=== PATIENT | male | born 1960 | race Caucasian/White ===

== ENCOUNTER 2021-10-21 18:04 | Emergency (ER) | payer SELFPAY ==
--- OUTSIDE RECORDS SUMMARY | 2021-10-21 18:06 | XMS REPORT | Continuity of Care Document ---
:1960 Author Organization [facility] t Address [facility] [place] [address] Care Team Providers Name Role Phone Bassam Cota Primary Care Physician Petty CHOUDHARY Attending Clinician Payers Payer Name Policy Type Policy Number Effective Date Expiration Date S ource Problems Condition Condition Condition Status Onset Resolution Last Treating Co mments Source Name Details Category Date Date Treatment Clinician Date No known No known Disease Unive rs active active ity of problems problems [facility] Allergies, Adverse Reactions, Alerts This patient has no known allergies or adverse reactions. Social History Social Habit Start Date Stop Date Quantity Comments Source Exposure to Not sure [facility] SARS-CoV-2 (event) [facility] Tobacco use and 2018-12-29 2018-12-29 Never used [facility] exposure 00:00:00 00:00:00 [facility] Sex Ass[birth year] At [birth year] [facility] 00:00:00 00:00:00 [facility] Smoking Status Start Date Stop Date Source Current every day smoker 2018-12-29 00:00:00 Uni versity [facility] Medications Ordered Filled Start Stop Current Ordering Indication Dosage Frequency Signature Comments Components Source Medication Medication Date Date Medication? Clinician (SIG) Name Name ondansetron Yes 4mg Take 1 Tab Univers (ZOFRAN 7-27 by mouth ity of ODT) 4 mg 00:00: every 8 [place] disintegrat 00 (eight) Medic al ing tablet hours as Branc h needed for Nausea and Vomiting (N/V). proMETHazin Yes 25mg Take 1 Tab Univers e 7-19 by mouth ity of (PHENERGAN) 00:00: every 6 [place] as 25 mg 00 (six) Medical tablet hours as Branch needed for Nausea and Vomiting (N/V). famotidine Yes 40mg Take 1 Tab U nivers (PEPCID) 40 7-19 by mouth ity of mg tablet 00:00: at [place] 00 bedtime. Medical Branch pentazocine Yes 1{tbl} Take 1 Tab Univers -naloxone 7-19 by mouth ity of (TALWIN NX) 00:00: every 6 [place] as 50-0.5 mg 00 (six) Medical tablet hours as Branch needed for Pain. traMADOL Yes 50mg Take 1 Tab Uni vers (ULTRAM) 50 7-14 by mouth ity of mg tablet 00:00: every 6 [place] 00 (six) Medical hours as Branch needed for Pain (scale 7-10). ondansetron Yes 4mg Take 1 Tab Univers (ZOFRAN, 7-14 by mouth ity of HYDROCHLORI 00:00: every 8 [place] as [place],) 4 mg 00 (eight) Medical tablet hours as Branch needed for Nausea and Vomiting (N/V). Vital Signs Vital Name Observation Time Observation Value Comments Source Systolic blood 2021-09-14 21:33:00 118 [facility]Hg[facility]astolic [facility] 2021-09-14 21:33:00 76 mm[Hg[facility] rate 2021-09-14 21:33:00 87 /min [facility] Body temperature 2021-09-14 21:33:00 36.22 [facility] Respiratory rate 2021-09-14 21:33:00 16 /min [facility] Body height 2021-09-14 21:33:00 180.3 cm [facility] Body weight 2021-09-14 21:33:00 102.876 kg [facility] BMI 2021-09-14 21:33:00 31.63 kg/m2 [facility] Branch Oxygen saturation in 2021-09-14 21:33:00 96 /min [facility] Arterial blood by [facility] Pulse oximetry Branch Procedures This patient has no known procedures. Encounters Start End Encounter Admission Attending Care Care Encounter Source Date/Time Date/Time Type Type Clinicians Facility Department ID 2021-09-14 2021-09-14 Office Petty [facility] [id number] [facility] 15:00:00 15:51:27 Visit Brandon VU [id number] i [facility] [id number] Flako james PROFESSIO [id number] Dc dical NAL [address] Branch BUILDING Results This patient has no known results.
[2021-10-21] MEDS ORDERED: TETANUS & DIPHTHERIA TOX,ADULT 0.5 ML VIAL ONE (18:48)
--- NOTE | 2021-10-21 19:47 | ER ---
Nurse's Notes [facility] [place], [place] Name: Aaron Robbins Jr Age: 61 yrs Sex: Male : 1960 Arrival Date: 10/21/2021 Time: 18:05 Bed 10 Private MD: Diagnosis: Laceration without foreign body of right ring finger without damage to nail, initial encounter-avulsion distal tip Presentation: 10/21 18:10 Chief complaint: Patient states: I was slicing vitor this evening with my new slicer ld1 - cut right 4th finger. Coronavirus screen: At this time, the client does not indicate any symptoms associated with coronavirus-19. Ebola Screen: No symptoms or risks identified at this time. Initial Sepsis Screen: Does the patient meet any 2 criteria? No. Patient's initial sepsis screen is negative. Does the patient have a suspected source of infection? No. Patient's initial sepsis screen is negative. Risk Assessment: Do you want to hurt yourself or someone else? Patient reports no desire to harm self or others. Onset of symptoms was October 21, 2021. Care prior to arrival:. 18:10 Method Of Arrival: Ambulatory ld1 18:10 Acuity: MARGUERITE 4 ld1 Triage Assessment: 18:12 General: Appears in no apparent distress. comfortable, Behavior is calm, cooperative, ld1 appropriate for age. Pain: Denies pain. Neuro: Level of Consciousness is awake, alert, obeys commands, Oriented to person, place, time, situation. Respiratory: Airway is patent Respiratory effort is even, unlabored. Musculoskeletal: No signs and/or symptoms reported regarding the musculoskeletal system. Injury Description: Laceration sustained to right hand. Historical: - Allergies: 18:12 No Known Allergies; ld1 - Home Meds: 18:12 Lexapro Oral [Active]; aspirin Oral [Active]; ld1 - PMHx: 18:12 Anxiety; ld1 - Immunization history:: Adult Immunizations up to date, Client reports having NOT received the Covid vaccine. - Social history:: Smoking status: Patient reports the use of cigarette tobacco products, smokes one pack cigarettes per day. Patient/guardian denies using alcohol. Screenin:17 Abuse screen: Denies threats or abuse. Nutritional screening: No deficits noted. ss7 Tuberculosis screening: No symptoms or risk factors identified. Fall Risk None identified. Assessment: 19:38 General: Appears in no apparent distress. Behavior is calm, cooperative, appropriate tw5 for age. Musculoskeletal: Range of motion: intact in all extremities. Vital Signs: 18:10 BP 139 / 91; Pulse 75; Resp 18; Temp 97.9(TE); Pulse Ox 97% on R/A; Weight 97.52 kg; ld1 Height 5 ft. 11 in. (180.34 cm); Pain 0/10; 18:10 Body Mass Index 29.99 (97.52 kg, 180.34 cm) ld1 ED Course: 18:05 Patient arrived in ED. as 18:12 Triage completed. ld1 18:12 Arm band placed on left wrist. ld1 18:17 Bernarda Victor RN is Primary Nurse. ss7 18:17 Patient has correct armband on for positive identification. ss7 18:17 No provider procedures requiring assistance completed. ss7 18:24 Luis Carlos Nobles PA is PHCP. cp 18:24 Luis Carlos Reyes MD is Attending Physician. cp 19:31 XRAY Finger-Thumb RIGHT In Process Unspecified. EDMS 20:11 Wound care: to laceration located on right hand was dressed with hemostat, nonadherent, tw5 co band , Patient tolerated. 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 Exp: ss7 01/06/2023. Lot #: [id number]. } Route: IM; Site: right deltoid; 20:13 Follow up: Response: No adverse reaction tw5 19:07 Drug: Hydrocodone-Acetaminophen (7.5 mg-325 mg) 1 tabs Route: PO; ss7 20:13 Follow up: Response: No adverse reaction; Pain is decreased tw5 20:13 Follow up: Response: RASS: Alert and Calm (0) tw5 Outcome: 19:46 Discharge ordered by . cp 20:13 Patient left the ED. tw5 Signatures: Dispatcher [employer] EDMS Shikha Marcial as Luis Carlos Nobles PA PA Homa Jalloh RN RN ld1 Chela Arredondo tw5 Bernarda Victor RN RN ss7
--- NOTE | 2021-10-21 19:47 | EDPHYS ---
Physician Documentation [facility] Name: Aaron Robbins Jr Age: 61 yrs Sex: Male : 1960 Arrival Date: 10/21/2021 Time: 18:05 Bed 10 Private MD: ED Physician Luis Carlos Reyes HPI: 10/21 18:40 This 61 yrs old Male presents to ER via Ambulatory with complaints of Finger Injury - cp laceration. 18:40 The patient or guardian reports injury. cp 18:40 The complaints affect the distal phalanx of right fourth finger. Context: resulted from cp use of vegetable slicer. Onset: The symptoms/episode began/occurred just prior to arrival. Associated signs and symptoms: Pertinent positives: bleeding from wound. Historical: - Allergies: 18:12 No Known Allergies; ld1 - Home Meds: 18:12 Lexapro Oral [Active]; aspirin Oral [Active]; ld1 - PMHx: 18:12 Anxiety; ld1 - Immunization history:: Adult Immunizations up to date, Client reports having NOT received the Covid vaccine. - Social history:: Smoking status: Patient reports the use of cigarette tobacco products, smokes one pack cigarettes per day. Patient/guardian denies using alcohol. ROS: 18:45 MS/extremity: Positive for avulsion of distal tip of right fourth finger. cp 18:45 Constitutional: Negative for body aches, chills, fever. cp 18:45 Cardiovascular: Negative for chest pain. 18:45 Respiratory: Negative for cough, shortness of breath. 18:45 Abdomen/GI: Negative for abdominal pain, nausea, vomiting, and diarrhea. 18:45 Neuro: Negative for numbness, weakness. 18:45 All other systems are negative. Exam: 18:50 Constitutional: The patient appears in no acute distress, alert, awake, well developed, cp well nourished. 18:50 Head/Face: Normocephalic, atraumatic. cp 18:50 Cardiovascular: Rate: normal. 18:50 Respiratory: the patient does not display signs of respiratory distress, Respirations: normal, no use of accessory muscles, no retractions, labored breathing, is not present. 18:50 Skin: injury, avulsion(s), a small of the distal tip of distal phalanx right fourth finger, that can be described as clean, no foreign body, linear, with moderate bleeding, nail and nail bed intact and no signs of tendon injury. Vital Signs: 18:10 BP 139 / 91; Pulse 75; Resp 18; Temp 97.9(TE); Pulse Ox 97% on R/A; Weight 97.52 kg; ld1 Height 5 ft. 11 in. (180.34 cm); Pain 0/10; 18:10 Body Mass Index 29.99 (97.52 kg, 180.34 cm) ld1 MDM: 18:25 Patient medically screened. delores 19:00 Differential diagnosis: open fracture, nail injury, tendon injury, laceration. cp 19:41 ED course: inquiry of [place] prescription monitor website shows RX for #30 Lorazepam cp given 08-31-2021. 19:45 Data reviewed: vital signs, nurses notes, radiologic studies, plain films. cp 19:45 Test interpretation: by ED physician or midlevel provider: xrays of right fourth finger cp negative for fracture. Response to treatment: the patient's symptoms have markedly improved after treatment, and as a result, I will discharge patient. ED course: Wound cleaned and irrigated. Surgiseal applied and pressure dressing placed. Will discharge to home to f/u with pcp next 1-2 days. 10/21 18:33 Order name: XRAY Finger-Thumb RIGHT; Complete Time: 20:10 cp 10/21 20:10 Interpretation: Reviewed. 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 Exp: ss7 01/06/2023. Lot #: [id number]. } Route: IM; Site: right deltoid; 20:13 Follow up: Response: No adverse reaction tw5 19:07 Drug: Hydrocodone-Acetaminophen (7.5 mg-325 mg) 1 tabs Route: PO; ss7 20:13 Follow up: Response: No adverse reaction; Pain is decreased tw5 20:13 Follow up: Response: RASS: Alert and Calm (0) tw5 Disposition Summary: 10/21/21 19:46 Discharge Ordered Location: Home cp Problem: new cp Symptoms: have improved cp Condition: Stable cp Diagnosis - Laceration without foreign body of right ring finger without damage to nail, cp initial encounter - avulsion distal tip Followup: cp - With: Private Physician - When: 1 - 2 days - Reason: Wound Recheck Discharge Instructions: - Discharge Summary Sheet cp - Deep Skin Avulsion cp Forms: - Medication Reconciliation Form cp - Thank You Letter cp - Antibiotic Education cp - Prescription Opioid Use cp Prescriptions: - Cephalexin 500 mg Oral Capsule - take 1 capsule by ORAL route every 8 hours for 10 days; 30 capsule; Refills: 0, cp Product Selection Permitted - Tramadol 50 mg Oral Tablet - take 1 tablet by ORAL route every 8 hours as needed; 12 tablet; Refills: 0, cp Product Selection Permitted Addendum: 10/25/2021 18:24 Co-signature as Attending Physician, Luis Carlos Reyes MD I agree with the assessment and c delarosa plan of care. Signatures: Dispatcher [employer] EDLuis Carlos Mora MD MD cha Page, Corey, PA PA cp Homa Ryan, RN RN ld1 Bernarda Victor RN RN ss7 Chela Arredondo tw5 Corrections: (The following items were deleted from the chart) 10/22 01:46 01:44 MS/extremity: Positive for avulsion of distal tip of right fourth finger, cp cp
--- NOTE | 2021-10-21 20:04 | RAD REPORT ---
EXAM DESCRIPTION: RAD - Finger-Thumb Right - 10/21/2021 7:31 pm CLINICAL HISTORY: laceration COMPARISON: No comparisons FINDINGS: Soft tissue amputation is present involving the tip of the fourth digit. The tuft of the d istal fourth phalanx is intact. No acute bone or joint finding. No foreign body. IMPRESSION: Fourth digit soft tissue wound without bone involvement seen.
[2021-10-21 20:59] VITALS: BP 139/91; TEMP 97.9; O2SAT 97
== END 2021-10-21 20:13 | disposition home or self-care (01) ==
LOC: ER 18:04
DX: S61.214A Laceration without foreign body of right ring finger without damage to nail, initial encounter (principal); W27.4XXA Contact with kitchen utensil, initial encounter; F41.9 Anxiety disorder, unspecified; F17.210 Nicotine dependence, cigarettes, uncomplicated; Z23 Encounter for immunization; Z79.82 Long term (current) use of aspirin
CPT/HCPCS: 90471; 90714; 99283